=== PATIENT | female | born 1965 | race Caucasian/White ===

== ENCOUNTER 2020-11-25 18:01 | Emergency (ER) | payer MEDICARE ==
[~2020-11-25] VITALS: Ht 165.1 cm; Wt 75.0 kg
[2020-11-25 21:24] LABS: HEMATOCRIT 36.8 % (37.0-47.0); HEMOGLOBIN 11.8 g/dl (12.0-16.0); MEAN CELL VOLUME 91.1 fL CALC (80.0-100.0); MEAN CORPUSCULAR HGB 29.2 pG CALC (26.0-32.0); MEAN CORPUSCULAR HGB CONC 32.1 g/dL CAL (32.0-36.0); NEUT# 3.11 thou/uL (2.00-7.15); RED BLOOD COUNT 4.04 mill/uL (4.20-5.60); RED CELL DISTRI WIDTH 13.1 % (11.5-15.5)
[2020-11-25 21:45] LABS: ALBUMIN 3.8 g/dL (3.2-5.0); ALKALINE PHOSPHATASE 76 u/l (38-126); ANION GAP 9 (6-22 (CALC)); BILIRUBIN, TOTAL 0.3 mg/dL (0.0-1.4); BUN 20 mg/dL (7-17); BUN/CREATININE RATIO 21 (12-20 (CALC)); CARBON DIOXIDE 25 mmol/l (22-30); CHLORIDE 109 mmol/l (95-108); CPK 37 u/l (30-165); CREATININE 0.9 mg/dL (0.5-1.0); GFR > 60 ML/MIN (>=60 (CALC)); GFR FOR AFR.AMER. > 60 ML/MIN (>=60 (CALC)); MAGNESIUM 2.1 mg/dL (1.6-2.3); POTASSIUM 4.8 mmol/l (3.5-5.1); SGOT/AST 25 u/l (14-36); SODIUM 139 mmol/l (137-146); TOTAL PROTEIN 6.4 g/dL (6.3-8.2)
[2020-11-25 21:54] LABS: MYOGLOBIN 25 ng/mL (0 - 62)
[2020-11-25 23:59] VITALS: BP 135/88
== END 2020-11-25 23:59 | disposition home or self-care (01) ==
LOC: ED 18:01
PROVIDERS: Family Medicine
DX: M79.7 Fibromyalgia (principal); Z20.822 Contact with and (suspected) exposure to COVID-19

== ENCOUNTER 2021-12-26 18:08 | Emergency (ER) | payer MEDICARE ==
[~2021-12-26] VITALS: Ht 165.1 cm; Wt 90.5 kg
[2021-12-26] MEDS ORDERED: ROPINIROLE4 MG PO (18:33)
[2021-12-26] MEDS ORDERED: BACLOFEN5 MG PO ×2 (18:56→19:55)
[2021-12-26] MEDS ORDERED: PERCOCET 5/325M1 TAB PO ×2 (18:56→19:55)
[2021-12-26 20:00] VITALS: BP 157/87
== END 2021-12-26 20:05 | disposition home or self-care (01) ==
LOC: WW 18:08 → ED 18:55 → WW 18:55 → ED 20:05
DX: S93.491A Sprain of other ligament of right ankle, initial encounter (principal); X50.0XXA Overexertion from strenuous movement or load, initial encounter; Y92.007 Garden or yard of unspecified non-institutional (private) residence as the place of occurrence of the external cause